=== PATIENT | male | born 1985 | race Caucasian/White ===

== ENCOUNTER 2025-01-15 01:26 | Emergency (ER) | payer OTHER ==
[~2025-01-15] VITALS: Ht 170.2 cm; Wt 77.1 kg
[2025-01-15 01:38] VITALS: BP 138/74; PULSE 78; RESP 17; TEMP 98.1; O2SAT 99
[2025-01-15] MEDS: LIDOCAINE 5% TRANSDERMAL PATCH TD ONE (03:58)
[2025-01-15] MEDS: KETOROLAC TROMETHAMINE 30 MG/ML VIAL IM ONE (03:58)
== END 2025-01-15 06:23 | disposition home or self-care (01) ==
LOC: EMS 03:12
DX: M54.6 Pain in thoracic spine (principal); R07.81 Pleurodynia
CPT/HCPCS: 99283; 72072; 96372; J1885